=== PATIENT | male | born 1940 | race Caucasian/White ===

== ENCOUNTER → 2018-03-03 | Outpatient (CLI) | payer OTHER | LOC: FIMAGING 11:14 | PROVIDERS: ATTEND Internal Medicine | DX: R51 Headache (principal); R60.0 Localized edema; M79.605 Pain in left leg; G31.89 Other specified degenerative diseases of nervous system; E11.9 Type 2 diabetes mellitus without complications; M10.9 Gout, unspecified; Z80.8 Family history of malignant neoplasm of other organs or systems ==